=== PATIENT | male | born 1990 | race Caucasian/White ===

== ENCOUNTER → 2020-05-08 10:27 | Outpatient (CLI) | payer BC, SELFPAY ==
--- NOTE | ~2020-05-08 | XR_ITS ---
[id number] 05/08/2020 10:46 Indication: Torticollis. Neck pain. Procedure: 4 views of the cervical spine Comparison: No prior studies for comparison. Findings: Vertebral body heights and disc heights are preserved. No fracture or traumatic malalignmen t. Odontoid process within normal limits. No prevertebral soft tissue abnormality. Lung apices are un remarkable. Impression: 1: No significant abnormality of the cervical spine. Reviewed, dictated and finalized at location B. TEACHER Impression: 1: No significant abnormality of the cervical spine.
== END ==
PROVIDERS: PCP Family Medicine; Visit Provider Nurse Practitioner Family
DX: M43.6 Torticollis (principal); R51.9 Headache, unspecified
CPT/HCPCS: 72040

== ENCOUNTER → 2020-05-22 16:48 | Outpatient (CLI) | payer BC, SELFPAY ==
--- NOTE | ~2020-05-22 | MR_ITS ---
EXAMINATION: MR brain/brain stem wo con DATE: 05/22/2020 18:15 INDICATION: Dizziness and giddiness. TECHNIQUE: Magnetic resonance imaging (MRI) of the brain and brainstem was performed without intraven ous contrast. Sequences included sagittal and axial T1-weighted FSE, axial diffusion-weighted FS EPI, axial T2*-weighted GRE, axial T2-weighted FLAIR Propeller, and axial T2-weighted Propeller. Apparent diffusion coefficient (ADC) maps were created. COMPARISON: None. FINDINGS: The cerebellar tonsils extend 8 mm inferior to foramen magnum, consistent with Chiari I mal formation. There is no intracranial hemorrhage, acute infarction, or abnormal intracranial mass lesio n. The ventricles are normal in size. The paranasal sinuses are clear. The orbits are normal. The mas toid air cells are normal. IMPRESSION: 1. Chiari I malformation. Reviewed, dictated and finalized at location A. OWCASE CUTTER IMPRESSION: 1. Chiari I malformation.
== END ==
PROVIDERS: PCP Family Medicine; Visit Provider Nurse Practitioner Family
DX: G93.5 Compression of brain (principal)
CPT/HCPCS: 70551

== ENCOUNTER → 2020-10-29 11:58 | Outpatient (CLI) | payer BC, SELFPAY ==
--- NOTE | ~2020-10-29 | MR_ITS ---
EXAMINATION: MR thoracic spine wo con DATE: 10/29/2020 12:54 INDICATION: Chiari I malformation. Neck pain. TECHNIQUE: Magnetic resonance imaging (MRI) of the thoracic spine was performed without intravenous c ontrast. Sagittal localizer T1-weighted FSE of the cervical spine was obtained. Thoracic spine sequen yolanda included sagittal T2-weighted FSE, sagittal T1-weighted FSE, sagittal STIR FSE, and axial T2-weig hted FSE. COMPARISON: Brain MRI 05/22/2020 FINDINGS: There is mild kyphosis of cervical spine. Vertebral body heights and intervertebral disc he ights are normal. There are Schmorl's nodes from T7-T8 through L1-L2. At T3-T4, there is a central ex trusion with mild central canal stenosis and ventral indentation of the spinal cord. At T4-T5, there is a central protrusion with mild central canal stenosis and ventral indentation of the spinal cord. At T5-T6, there is a central extrusion with mild central canal stenosis and ventral indentation of th e spinal cord. At T6-T7, there is a central protrusion with mild central canal stenosis and ventral i ndentation of the spinal cord. 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 No n eural foraminal stenosis. The spinal cord signal intensity is normal. No syringohydromyelia. IMPRESSION: 1. Mild thoracic spondylosis. Reviewed, dictated and finalized at location A.
== END ==
DX: G93.5 Compression of brain (principal); M47.814 Spondylosis without myelopathy or radiculopathy, thoracic region
CPT/HCPCS: 72146